=== PATIENT | female | born 1960 | race Caucasian/White ===

== ENCOUNTER 2017-06-18 09:43 | Outpatient (CLI) | payer BC ==
--- NOTE | 2017-06-18 10:58 | MMO ---
BILATERAL SCREENING MAMMOGRAM: Date: 06/18/17 COMPARISON: 06/17/16, 05/31/15, 04/13/14, 03/01/13, 03/08/13, and 12/11/11 exams. HISTORY: Annual screening exam. This patient's mammogram was interpreted with the assistance of computer-aided detection. FINDINGS: Scattered fibroglandular changes of both breasts are noted. Area of nodularity within the slightly in ferior left breast is stable. IMPRESSION: BIRADS 2: Benign Finding(s) POS: RAD[facility]
== END 2017-06-18 09:44 | disposition home or self-care (01) ==
LOC: SCSMAMMO 09:43
PROVIDERS: ATTEND Obstetrics & Gynecology
DX: Z12.31 Encounter for screening mammogram for malignant neoplasm of breast (principal)
CPT/HCPCS: 77067; G0202

== ENCOUNTER 2018-07-22 12:17 | Outpatient (CLI) | payer BC ==
--- NOTE | 2018-07-22 14:16 | MMO ---
BILATERAL SCREENING MAMMOGRAM: HISTORY: Screening. COMPARISON: Mammograms from 2017, 2016, and 2015. TECHNIQUE: Bilateral screening CC and MLO mammograms are performed with computer aided detection. FINDINGS: Small bilateral breast masses are similar. No suspicious mass, architectural distortion, or microcal cifications. IMPRESSION: BI-RADS 2-Benign findings. Continued screening is recommended. POS: RADHA
== END 2018-07-22 12:18 | disposition home or self-care (01) ==
LOC: SCSMAMMO 12:17
PROVIDERS: ATTEND Obstetrics & Gynecology
DX: Z12.31 Encounter for screening mammogram for malignant neoplasm of breast (principal)
CPT/HCPCS: 77067